=== PATIENT | male | born 1955 | race Caucasian/White ===

== ENCOUNTER → 2017-06-22 | Day surgery (SDC) | payer BC, OTHER ==
[2017-06-15 15:31] VITALS: BMI 28.0
[~2017-06-22] VITALS: Ht 177.8 cm; Wt 90.7 kg
[~2017-06-22] MED LIST: ATROPINE SULFATE 0.1 MG/ML 5ML SYR IV PRN; BACITRACIN OINT 15 GM TUBE ONE; BUPIVACAINE 0.5 % 5 MG/1 ML MPF 30ML VIAL ONE; CEFAZOLIN 2000MG IV PUSH 15 ML IV SCH; CEFAZOLIN SOD 2000MG/15 ML IV PUSH IV ONE; DEXAMETHASONE SOD INJ 4 MG/ML VIAL ONE; EpHEDrine SULFATE INJ 50 MG/ML AMP IV PRN; FENTANYL CITRATE INJ 50 MCG/1 ML 2 ML VIAL IV PRN; FENTANYL CITRATE INJ 50 MCG/1 ML 2 ML VIAL ONE; GELATIN SPONGE SZ 100 ONE; HYDROmorphone INJ 1 MG/ML SYR IV PRN; LABETALOL HCL IV 5 MG/ML 20ML IV PRN; LACTATED RINGER'S 1000ML 1,000 ML IV SCH; LIDOCAINE HCL 1% 20 ML VIAL ONE; LIDOCAINE HCL 2% 2 ML VIAL (20MG/ML) ONE; MEPERIDINE HCL 25 MG/ML CARP IV PRN; METHYLENE BLUE 0.5% 10 ML VIAL ONE; MIDAZOLAM HCL 1 MG/ML 2ML VIAL ONE; MoRPHine SULFATE 2 MG/ML CARP IV PRN; NO MEDICATIONS; ONDANSETRON INJ 2 MG/ML 2 ML VIAL IV PRN; ONDANSETRON INJ 2 MG/ML 2 ML VIAL ONE; OXYC-57 PO; OXYCODONE/ACETAMINOPHEN 5-325 TAB PO PRN; PROPOFOL IV EMULSION 10 MG/ML 20 ML VIAL IV ONE; ROCURONIUM BROMIDE 10 MG/ML 5 ML VIAL IV ONE; SODIUM CHLORIDE 0.9% 1000ML 1,000 ML IV SCH; SULF800T23 PO
[2017-06-22 11:30] VITALS: BP_SYST 140; BP_SYST 160; BP_DIAS 101; BP_DIAS 84; PULSE 57; TEMP 36.6; O2SAT 98; Ht 177.8 cm; Wt 90.7 kg
--- NOTE | 2017-06-22 12:53 | History & Physical Bridge Note ---
H&P Re-Evaluation Bridge Note: I have examined the patient, reviewed the History & Physical and in the interval since the performance of the History & Physical I have noted the following changes of clinical significance: pt will have rectal exam and hemorrhoidectomy.
--- NOTE | 2017-06-22 14:10 | [facility] Post Operative Brief Note ---
Immediate Operative Summary Operative Date Jun 22, 2017. Pre-Operative Diagnosis Hemorrhoids Post-Operative Diagnosis Hemorrhoids Procedure(s) Performed Hemorrhoidectomy X [address] Ruy Servin Vp [employer] Surgeon(s) None Estimated Blood Loss 5ml Findings See Below (other hemorrhoid with active bleeding at 4 O'clock, size 1x1cm, ) polyp like tissue at 6 O'clock with active bleeding, size 0.8x2cm, Fluids (cc crystalloids) 400ml Specimens Permanent specimens hemorrhoid x 2 Drains None Anesthesia Type General Complication(s) none Disposition Accompanied Pt To Recover: yes Disposition: Recovery Room / PACU
--- NOTE | 2017-06-22 14:31 | Discharge Instructions ---
Discharge Instructions Date of Service Jun 22, 2017. Visit Reason for Visit: Hemorrhoids Discharge Discharge Diagnosis / Problem: S/P hemorrhoidectomy Discharge Goals Goal(s): Decrease discomfort, Improve function Activity Recommendations Activity Limitations: per Instructions/Follow-up section Lifting Limitations: none Exercise/Sports Limitations: rest today May Resume Sexual Activity: after two weeks Shower/Bathe: may shower/bathe in 3 days Driving or Machine Use: resume 3 days after discharge Anesthesia . Post Anesthesia Instructions: If you have had General Anesthesia or IV Sedation: * Do not drive today. * Resume driving when surgeon permits. * Do not make important decisions or sign legal documents today. * Call surgeon for: 1. Temperature elevations greater than 101 degrees F. 2. Uncontrollable pain. 3. Excessive bleeding. 4. Persistent nausea and vomiting. 5. Medication intolerance (nausea, vomiting or rash). * For nausea and vomiting use only clear liquids such as: tea, soda, bouillon until nausea subsides, then gradually increase diet as tolerated. * If you have any concerns or questions, call your surgeon's office. If physician is unavailable and it is an emergency, call 911 or go to the nearest emergency room. . Instructions / Follow-Up Instructions / Follow-Up keep the dressing one day, he can take a shower on 06/23/17. no driving while taking pain medicine, follow up Dr. Servin 1 week, Diet Recommendations Recommended Home Diet: resume previous diet Procedures Procedures Performed: Hemorrhoidectomy X 2 Pending Studies Studies pending at discharge: no Medical Emergencies . Who to Call and When: Medical Emergencies: If at any time you feel your situation is an emergency, please call 911 immediately. . Non-Emergent Contact Non-Emergency issues call your: Surgeon Call Non-Emergent contact if: you have a fever, temperature is above 100.5, your pain is not controlled, your pain is worsening, wound has increased drainage, wound has increased redness . . "Provider Documentation" section prepared by Ruy Servin. . [place] Drug Monitoring Program Search Results: no issues identified
[2017-06-22 14:54] VITALS: BP 137/81; PULSE 45; TEMP 36.6; O2SAT 99
--- NOTE | 2017-06-22 15:01 | Anesthesiology Progress Note ---
Anesthesia Post Op Note Date & Time Jun 22, 2017 at 15:00 Vital Signs Pain Intensity: 0 Vital Signs Past 12 Hours Date Time Temp Pulse Resp B/P (MAP) Pulse Ox O2 Delivery O2 Flow Rate FiO2 06/22/17 14:50 36.6 45 14 142/89 99 Room Air 06/22/17 14:40 45 14 149/87 98 Room Air 06/22/17 14:30 46 18 125/87 100 Room Air 06/22/17 14:20 48 18 138/83 100 Oxymask 3 06/22/17 14:12 36.4 57 18 123/83 97 Oxymask 5 06/22/17 11:30 36.6 57 18 140/84 (102) 98 Room Air Notes Mental Status: alert / awake / arousable, participated in evaluation Pt Amnestic to Procedure: Yes Nausea / Vomiting: adequately controlled Pain: adequately controlled Airway Patency, RR, SpO2: stable & adequate BP & HR: stable & adequate Hydration State: stable & adequate Anesthetic Complications: no major complications apparent
[2017-06-22 15:24] VITALS: BP 163/90; PULSE 43; TEMP 36.6; O2SAT 100
--- NOTE | 2017-06-22 16:58 | OPERATIVE REPORT ---
DATE OF OPERATION: 06/22/2017 PREOPERATIVE DIAGNOSIS: Hemorrhoids. POSTOPERATIVE DIAGNOSIS: Hemorrhoids. PROCEDURE: Hemorrhoidectomy x2. SURGEON: Ruy Servin MD ANESTHESIA: General plus local. ESTIMATED BLOOD LOSS: About 5 mL. FINDINGS: 1. A polyp like hemorrhoid located at 6 o'clock with active bleeding. 2. Internal hemorrhoids located at 4 o'clock with active bleeding. COMPLICATIONS: None. INDICATIONS FOR THE PROCEDURE: This is a 62-year-old gentleman who presented with a 1 year history of rectal bleeding, and the patient diagnosed as hemorrhoids. The patient was required to do hemorrhoidectomy. I did talk to the patient about benefits, risks, alternate procedure. I indicated the risks that may include but are not limited to bleeding, infection, recurrence, may need to do more procedure. The patient understands. He signed informed consent. He agreed to proceed with the procedure. I answered all questions. DETAILS OF PROCEDURE: We brought the patient to the OR, put the patient in the supine position. The patient received SCD on bilateral legs to prevent DVT, and the patient received 2 g Ancef IV for prophylactic antibiotic. The patient received general anesthesia by anesthesiology. We then put him in a lithotomy position, and the patient's rectal area was appropriately prepped in routine sterile fashion. After timeout, we started to do the rectal exam, and we found the patient had 1 polyp like internal hemorrhoid located at 6 o'clock with active bleeding and another internal hemorrhoid located at 4 o'clock with active bleeding. I then used ultra shear and took down the polyp-like internal hemorrhoid, rechecked, no active bleeding, and we took down another hemorrhoid located at 4 o'clock also, rechecked, no active bleeding. We injected local anesthesia by using 1% lidocaine mixed with 0.5% Marcaine around the rectal area, rechecked, no active bleeding from the rectum. We put a drain on the incision and put a dressing on. The patient tolerated procedure well. All instrument, needle, and sponge counts were correct x2 at the end of case. Specimen sent to pathology. The patient transferred to recovery room in stable condition. After procedure, I did talk to the patient's about the OR findings and procedure we did. She understands. I answered all questions. I attest to the content of the Intraoperative Record and any orders documented therein. Any exception s are noted below.
== END | disposition home or self-care (01) ==
LOC: C.ACU 11:13
PROVIDERS: ATTEND Surgery
DX: K64.8 Other hemorrhoids (principal); Z82.49 Family history of ischemic heart disease and other diseases of the circulatory system; Z80.42 Family history of malignant neoplasm of prostate